=== PATIENT | male | born 1995 | race Caucasian/White ===

== ENCOUNTER 2020-02-28 15:34 | Outpatient (CLI) | payer OTHER ==
--- NOTE | 2020-02-28 16:41 | CT Report ---
PROCEDURE: LOWER EXTREMITY WO - RT INDICATIONS: SPONTANEOUS DISRUPTION OF LIGAMENT OF KNEE TECHNIQUE: Noncontrast 3 mm axial sections acquired of the right knee, with coronal and sagittal reformats. COMPARISON: None. FINDINGS: Image quality: Excellent. No fracture or focal osseous destruction is seen. There is lateral patellar tilt. Postsurgical seque la related to prior ACL reconstruction. The hardware appears grossly intact. No evidence of hardware loosening. Trace joint effusion is present. The visualized muscles grossly unremarkable. Small Floyd' s cyst is noted measuring approximately recent centimeter in the cephalocaudad dimension. Scattered s ubchondral sclerosis and spurring. Chronic appearing 1 mm calcific focus seen in the intercondylar n otch on image 82/7. IMPRESSION: Postsurgical changes related to ACL reconstruction. If clinically warranted, further characterization of the graft could be performed with MRI. Mild joint degeneration Trace joint effusion Small Floyd's cyst Lateral patellar tilt Reviewed by: Ilir Rodriguez MD on 02/28/2020 4:40 PM PDT Approved by: Ilir Rodriguez MD on 02/28/2020 4:40 PM PDT Station ID: [id number]
== END 2020-02-28 15:35 | disposition home or self-care (01) ==
LOC: DI 15:34
PROVIDERS: ATTEND Orthopaedic Surgery
DX: M17.11 Unilateral primary osteoarthritis, right knee (principal); M25.461 Effusion, right knee; M71.21 Synovial cyst of popliteal space [Baker], right knee; M22.8X1 Other disorders of patella, right knee

== ENCOUNTER 2020-04-22 09:49 | Day surgery (SDC) | payer OTHER ==
[2020-04-22] MEDS ORDERED: LACTATED RINGERS 1,000 ML IV ONE ×2 (09:54→17:50)
[2020-04-22] MEDS ORDERED: EPINEPHrine 1 MG/ML AMP ONE (10:02)
--- NOTE | 2020-04-22 10:49 | ANESTHESIA ---
Pre-Anesthesia VS, & Labs - Diagnosis R ACL and meniscus tear - Procedure R AACL w/patellar tendon allograft, MCL reconstruction w/hamstring allograft, possible meniscus repair. Vital Signs: Temp Pulse Resp BP Pulse Ox 36.2 C L 58 L 12 138/98 H 100 04/22/20 09:54 04/22/20 09:54 04/22/20 09:54 04/22/20 09:54 04/22/20 09:54 Height 6 ft 2 in Weight (kg) 102.4 kg - NPO >8 hours Last Fluid Intake: black coffee 0800 Home Medications and Allergies Home Medications: Ambulatory Orders Multivitamin [Multiple Vitamins] 1 each PO DAILY 04/22/20 Multivitamin [Multiple Vitamins] 1 each PO DAILY 04/22/20 Allergies/Adverse Reactions: Allergies Allergy/AdvReac Type Severity Reaction Status Date / Time No Known Drug Allergies Allergy Verified 04/14/20 09:33 Anes History & Medical History - Anesthetic History Anesthesia Complications: reports: No previous complications Family history of Anesthesia Complications: Denies Family history of Malignant Hyperthermia: Denies - Medical History Cardiovascular: reports: None Pulmonary: reports: None Gastrointestinal: reports: None Urinary: reports: None Musculoskeletal: reports: Other Endocrine/Autoimmune: reports: None Skin: reports: None Psychosocial: reports: No issues indicated - Surgical History Orthopedic: ACL reconstruction, Other Exam General: Alert, Oriented x3, Cooperative Mouth Opening: Greater than 4 Fingerbreadths Neck Mobility: Normal Mallampati classification: I Thyromental Distance: greater than 6 cm Respiratory: Lungs clear, Normal breath sounds, No respiratory distress Cardiovascular: Regular rate ([id number]@[id number]) Neurological: Normal speech Mental/Cognitive Status: Alert/Oriented X3, Normal for patient Cognitive Status: Within normal limits Plan Anesthesia Type: General, Adductor Block Consent for Procedure(s) Verified and Reviewed: Yes Code Status: Attempt Resuscitation ASA classification: 1-Healthy patient Is this case an emergency?: No
[2020-04-22] MEDS ORDERED: CEFAZOLIN SODIUM IN 0.9 % NACL 2 GM/100 ML BAG IV ONE ×2 (11:51→16:45)
[2020-04-22] MEDS ORDERED: BUPIVACAINE 0.25% PF 30 ML VIAL ONE (12:22)
[2020-04-22] MEDS ORDERED: BACITRACIN 50,000 UNIT VIAL ONE (12:55)
[2020-04-22] MEDS ORDERED: ONDANSETRON 4 MG/2 ML VIAL IVP ONE (13:01)
[2020-04-22] MEDS ORDERED: PROPOFOL 200 MG/20 ML VIAL IVP ONE (13:01)
[2020-04-22] MEDS ORDERED: MIDAZOLAM 2 MG/2 ML VIAL IVP ONE (13:01)
[2020-04-22] MEDS ORDERED: fentaNYL 100 MCG/2 ML VIAL IVP ONE (13:01)
[2020-04-22] MEDS ORDERED: DEXAMETHASONE 4 MG/ML VIAL IVP ONE (13:01)
[2020-04-22] MEDS ORDERED: LIDOCAINE-MPF 2% 5 ML VIAL IM ONE (13:01)
[2020-04-22] MEDS ORDERED: KETOROLAC 30 MG/ML VIAL IVP ONE (13:01)
[2020-04-22] MEDS ORDERED: diphenhydrAMINE INJ 50 MG/ML VIAL IVP PRN (13:21)
[2020-04-22] MEDS ORDERED: NALOXONE 0.4 MG/ML VIAL IVP PRN (13:21)
[2020-04-22] MEDS ORDERED: METOCLOPRAMIDE 10 MG/2 ML VIAL IVP PRN (13:21)
[2020-04-22] MEDS ORDERED: HYDROmorphone 0.5 MG/0.5 ML SYRINGE IVP PRN (13:21)
[2020-04-22] MEDS ORDERED: ePHEDrine 50 MG/ML VIAL IVP PRN (13:21)
[2020-04-22] MEDS ORDERED: fentaNYL 100 MCG/2 ML VIAL IVP PRN (13:21)
[2020-04-22] MEDS ORDERED: ACETAMINOPHEN 1,000 MG/100 ML 100 ML IV ONE ×2 (13:21→18:25)
[2020-04-22] MEDS ORDERED: ATROPINE ABBOJECT 1 MG/10 ML SYRINGE IVP PRN (13:21)
[2020-04-22] MEDS ORDERED: ONDANSETRON 4 MG/2 ML VIAL IVP PRN ×2 (13:21→17:50)
[2020-04-22] MEDS ORDERED: LACTATED RINGERS 1,000 ML IV SCH (14:00)
[2020-04-22] MEDS ORDERED: EPINEPHrine 1 MG/ML AMP IR ONE (14:42)
--- NOTE | 2020-04-22 15:35 | XRAY Report ---
PROCEDURE: OR C-Arm Procedure INDICATIONS: IMPLANTED SCREW IDENTIFICATION TECHNIQUE: 2 Intraoperative fluoroscopic images were provided for evaluation. COMPARISON: CT knee 02/28/2020 FINDINGS: Localizers noted overlying the posterior knee joint. Single image of orthopedic screw is noted overly ing the condyle. Hardware appears intact. IMPRESSION: Intraoperative images as above. Reviewed by: Breanna Laurent MD on 04/22/2020 3:34 PM PDT Approved by: Breanna Laurent MD on 04/22/2020 3:34 PM PDT Station ID: [id number]
[2020-04-22] MEDS ORDERED: oxyCODONE 5 MG TABLET PO PRN (17:50)
[2020-04-22] MEDS ORDERED: HYDROmorphone 0.5 MG/0.5 ML SYRINGE ONE (18:12)
--- NOTE | 2020-04-22 18:17 | OPERATIVE REPORT ---
Operative Report - Other Other Information/Narrative: Date of Surgery: 22 April 2020 Pre-Op Diagnosis: Right ACL graft rupture. Right MCL chronic tear. Right medial meniscus tear. Procedure: Right knee arthroscopy with medial meniscus debridement, lateral meniscus debridement, ACL graft debridement, proximal tibia bone grafting Postop Diagnosis: Same. Prior medial meniscus tear had not healed Primary Surgeon: Henry Cosme Secondary Surgeon: Jp Soto Complications: None Tourniquet Time: 120 minutes EBL: 200 cc Indication For Surgery: 24-year-old male who previously had an ACL reconstruction, femoral sided MCL repair, and bucket-handle medial meniscus repair in 2012 sustained another injury to his knee a few months ago. He had daily instability for both the ACL and the MCL. We discussed treatment options to include single-stage revision, two-stage revision, MCL reconstruction, and treatment of his meniscus tear. He elected to move forward knowing that we would do what is possible and surgery today. The risks, benefits, and alternatives were discussed. Risks include pain, bleeding, infection, damage to nearby structures and cartilage, lack of symptom relief, need for further surgery, DVT, PE, stroke, and . Written consent was obtained. Examination Under Anesthesia: ROM equal to the contralateral side. Stable dial at 30 & 90 degrees. Stable to varus and valgus stressing at 0 & 30 degrees. 2b Demi. Abnormal Pivot shift. There is a mechanical sensation medially when moving from flexion to extension. Arthroscopic Findings: Loose bodies -none Synovium -normal Patella cartilage -normal Trochlear cartilage -linear tracking but no full-thickness fissures Medial femoral condyle cartilage -some marbling but no full-thickness fissures Medial tibial plateau cartilage -normal. There was a positive medial drive- through sign indicating MCL instability Medial meniscus -a chronic we retracted radial tear that is complete resulting with a piece flipped posteriorly behind the medial femoral condyle and another piece flipped anteriorly. The degenerative and unstable portions of the meniscus were excised. This left him with a subtotal meniscectomy Anterior cruciate ligament -graft was torn from its position on the femur and significantly loosened and bulbous. The graft was debrided. Posterior cruciate ligament -normal Lateral femoral condyle cartilage -normal Lateral tibial plateau cartilage -normal Lateral meniscus -fraying and partial tearing of the anterior horn which was debrided with a shaver Procedure in Detail: The patient was met in the pre-operative hold area on the day of the procedure. The operative extremity was signed and questions were answered. The patient was brought to the operating room and a general anesthetic was administered. Supine position was used and bony prominences were padded. An examination under anesthesia was performed. Standard prepping and draping was performed. A time out confirmed patient identification, laterality, procedure, allergies, antibiotics, and images. An Esmarch was used to exsanguinate the limb and the tourniquet was elevated to 250 mmHg. A standard diagnostic arthroscopy of the knee was performed through anterolateral and anteromedial portal sites. The anteromedial portal was cr eated under direct visualization after localizing with a spinal needle. The findings can be found above. I then proceeded to use a biter and a shaver to debride all unstable portions of the medial meniscus. The medial meniscus was easily accessed given the large gapping between the femoral condyle and the tibial plateau consistent with an MCL tear. I then used the shaver to debride the lateral meniscus as needed. I then used the shaver and biter to debride the ACL graft that was torn and bulbous. After debriding the graft completely I then turned my attention to screw removal. His prior medial incision was extended distally and anteriorly along the course of the MCL fibers and full-thickness skin flaps were obtained I identified the prior metal screw that was superior to the Pez anserine and the screw was removed without issue. I then used his prior lateral incision dissected down to the IT band creating a window just posterior to it. I was unable to easily identify the location of the screw and so C-arm was brought in to help me identify. After the location was identified I then decided to wait on removal because I may be able to do the case with leaving the screw intact. I then returned into the knee and drilled the tibial tunnel with a size 10 reamer. It was seen at the tunnel and overlapped with the prior tunnel leading a snowman type configuration. The majority of the tunnel had good silva but the most anterior portion did not and this was the area where the screw had been as well. I considered attempting the single-stage reconstruction because I felt that I would be able to fix the distal bone block and the soft tissue would be passing more posterior to the portion of the tunnel that overlap with the prior tunnel and it would not engage in windshield wiping. I then attempted to drill the femur and as the guidewire was passed and they deflected anteriorly. I tried multiple times to pass and adjust the wire without success. I then decided that I would remove the femoral screw as it may have been causing the deflection although the preoperative imaging did not make that likely. After the screw was removed, I was able to place a wire but the wire was not centered within the ACL origin on the femur. I attempted multiple passes at redirecting the wire but it continued to go down the prior tract and I could not get it to the center of the ACL origin. I considered performing sequential dilations with manipulation of the wire but decided that that was unlikely to lead to an acceptable outcome. The prior femoral tunnel could be felt and it was in excellent position but I could not get a guidewire into the center of the prior tunnel. The challenges with the femoral side as well as the nonideal shape of the tibial tunnel resulted in me deciding to graft the tibia and return for a second stage reconstruction. It is also considered that the subtotal medial meniscectomy may be best served with a meniscal allograft and consultation with the surgeon that performs at surgery may be requested I then upsized the tibial tunnel to a 12 and this resulted in having for bony silva for the tunnel. Satisfied with this I then placed a 13 mm bone dowel up into the joint and then used the shaver to shave it to the correct shape of the intertubercular area. I then backfilled this with cancellus chips. Final images were taken and all arthroscopic fluid and instruments were removed from the knee. All incisions were irrigated copiously. And closed in a layered fashion with 0 Vicryl in the deep tissues and the IT band. 2-0 Vicryl in the dermis. And Monocryl in the skin. Steri strips were applied. 30 cc of 0.25% Marcaine without epinephrine was injected near the portal sites and the incisions. A sterile dressing and compression stocking was placed. The patient was awakened and transferred to recovery in stable condition.
[2020-04-22] MEDS ORDERED: oxyCODONE 5 MG TABLET ONE (18:40)
--- NOTE | 2020-04-22 18:45 | ANESTHESIA POST OP EVALUATION ---
Anesthesia Post Eval - Post Anesthesia Eval Vitals: Last Vital Signs Temp 37.2 C 04/22/20 18:22 Pulse 93 04/22/20 18:35 Resp 21 04/22/20 18:35 BP 142/87 H 04/22/20 18:35 Pulse Ox 97 04/22/20 18:35 CV Function Including HR & BP: positive: Stable Pain Control: positive: Satisfactory Nausea & Vomiting: positive: Negative Mental Status: positive: Baseline Respiratory Status: Airway Patent Hydration Status: Satisfactory Anesthesia Complications: positive: None
[2020-04-22 19:08] VITALS: BP 143/82
== END 2020-04-22 09:50 | disposition home or self-care (01) ==
LOC: SDS 09:49
PROVIDERS: ATTEND Orthopaedic Surgery
DX: S83.511A Sprain of anterior cruciate ligament of right knee, initial encounter (principal); S83.241A Other tear of medial meniscus, current injury, right knee, initial encounter; S83.411A Sprain of medial collateral ligament of right knee, initial encounter; S83.281A Other tear of lateral meniscus, current injury, right knee, initial encounter